=== PATIENT | male | born 1965 | race Caucasian/White ===

== ENCOUNTER 2017-06-14 19:41 | Observation (INO) ==
--- NOTE | 2017-06-14 20:20 | Emergency Department Note ---
Disposition Clinical Impression: Infectious colitis Disposition: Admitted As Inpatient Condition: Good Time of Disposition: 23:30 Abdominal Pain HPI - General Chief Complaint: ED Abdominal Pain Stated Complaint: possible appy Time Seen by Provider: 06/14/17 19:58 Source: patient, EMS Mode of arrival: EMS Limitations: no limitations Nursing Notes Reviewed: Yes Vital Signs Reviewed: Yes - History of Present Illness HPI Narrative: 52-year-old male history of hyperlipidemia and depression presents to the ED via EMS from the [place] for abdominal pain. Patient reports over the past 7 days he has been experiencing abdominal pain mostly on the right side with some associated nausea, vomiting and diarrhea. States he has not taken anything for the pain. He feels when he lays down it makes it feel better but is also even nicer if he stands up. Sitting is uncomfortable. No association with foods. Denies any fever or chills. States prior to the symptoms he was congested and having sinus issues. He was recently diagnosed with some pulmonary nodules and is getting followed up at [facility] for these. He denies any recent travel. Denies any sick contacts. He continues to smoke denies any alcohol use. No prior abdominal surgeries. Today he went to the [place] where they did a CT with oral contrast due to IV contrast allergy which read mildly dilated appendix related to append a seal wall thickening acute appendicitis unlikely but cannot be excluded. There is also mild wall thickening of the descending colon with fatty prominence and may represent inflammatory bowel disease. Pain Scale: 5 - Related Data Allergies Allergy/AdvReac Type Severity Reaction Status Date / Time adhesive tape Allergy Rash Verified 09/22/16 07:31 IVP Dye Allergy Rash Uncoded 09/22/16 07:30 All systems ED: reviewed and negative except as stated. Review of Systems: As Per HPI Constitutional: Denies: fever, chills ENT ED: Reports: congestion. Denies: dysphagia Cardiovascular: Denies: chest pain, dyspnea on exertion Respiratory: Denies: cough, dyspnea Gastrointestinal: Reports: abdominal pain, nausea, vomiting, diarrhea. Denies: melena, hematochezia Genitourinary: Denies: urgency, dysuria Musculoskeletal: Denies: back pain, neck pain Integumentary: Denies: rash, abrasion, lesions Neurological: Denies: headache, weakness Abdominal Pain PMH - Past Medical History Medical history: Reports: GERD, hyperlipidemia Male Surgical History: Reports: orthopedic, other Psychiatric history: Reports: no psych history - Social History Smoking status: Current every day smoker Alcohol use: Reports: occasionally Drug use: Reports: none Physical Exam - General Limitations: no limitations General appearance: alert, in no apparent distress, obese - Head Head exam: atraumatic, normocephalic, normal inspection - Eye Eye exam: Present: normal appearance, PERRL, EOMI - ENT ENT exam: normal exam, normal oropharynx, mucous membranes moist - Neck Neck exam: Present: normal inspection, full ROM, trachea midline - Chest Chest inspection: Present: normal inspection, symmetric chest wall rise - Respiratory Respiratory exam: Present: normal lung sounds bilaterally. Absent: respiratory distress, wheezes - Cardiovascular Cardiovascular exam: Present: regular rate, normal rhythm, normal heart sounds - Abdominal Exam Abdominal exam: Present: soft, tenderness (DIFFUSE), normal bowel sounds, Hui 's sign, tenderness at McBurney's Point. Absent: distention, guarding, rebound , rigidity, Rovsing's sign, mass, scar Abdominal tenderness: Present: RUQ, RLQ, diffuse - Extremities Exam Extremities exam: Present: normal inspection, full ROM, normal capillary refill. Absent: tenderness, pedal edema - Back Exam Back exam: Present: normal inspection, full ROM. Absent: tenderness, CVA tenderness (R), CVA tenderness (L) - Skin Skin exam: Present: warm, dry, intact, normal color Course Course Narrative: 52-year-old male presenting with abdominal pain nausea vomiting in diarrhea. Concern for possible colitis and appendicitis. Will obtain images and consult surgery for possible admission or surgery. Patients in agreement with this plan. He was offered pain medication and nausea medication and kindly declined. Informed to notify staff if he needs anything. - Reevaluation(s) Reevaluation #1: Patient is resting comfortably in bed. Abdomen mildly tender to the right abdomen. Otherwise soft nondistended nonrigid. He will be admitted for colitis. Time: 23:30 - Consultations Consultation #1: Spoke to the on-call surgeon Dr. Kothari, she agrees this is likely not appendicitis most likely colitis. She does wish for the images to be uploaded and unofficial read by our radiologists. She would be happy to consult it on this patient for inpatient treatment. No additional orders or intervention at this time Time: 20:47 Consultation #2: Spoke with balbina Kam to admit to medicine and she will consult. Agrees with recommendation for Cipro Flagyl IV antibiotics. No surgical intervention at this time. Outside Interv Exam: Second Opinion 06/14/17 00:00 IMPRESSION: 1. Mild bowel wall thickening involving the cecum and ascending colon most suggestive of an infectious colitis. 2. The appendix is mildly thick walled likely secondarily inflamed given the wall thickening of the cecum. There is no periappendiceal inflammatory stranding to suggest acute appendicitis. 3. Indeterminate 8 mm nodule within the right lower lobe. A nonemergent CT of the chest is recommended for further evaluation of this finding. The above findings were discussed Dr. Alcantar at 11:10 p.m. on 06/14/2017. D/ / Giovanni Corbin MD / Giovanni Corbin MD Interpreting Provider: Giovanni Corbin MD Time: 23:28 Vital Signs Temperature 98.1 F 06/14/17 19:43 Pulse Rate 92 06/14/17 19:43 Respiratory Rate 20 06/14/17 19:43 Blood Pressure 156/102 06/14/17 19:43 O2 Sat by Pulse Oximetry 95 06/14/17 19:43 Temperature 97.9 F 06/15/17 04:11 Pulse Rate 73 06/15/17 04:11 Respiratory Rate 18 06/15/17 04:11 Blood Pressure 120/76 06/15/17 04:11 O2 Sat by Pulse Oximetry 96 06/15/17 04:11 Oxygen Delivery Oxygen Delivery Room Air Abdominal Pain - MDM Narrative Medical decision making narrative: Patient was discussed with my attending physician who agrees with ED management and final disposition. They independently evaluated the patient. Please refer to their attestation to this encounter for additional information. This note was generated by [employer] voice recognition software and as a result grammatical or spelling errors may occur using this program. - Medical Records Medical records reviewed: Yes I reviewed the patient's medical records. - Lab Data Lab results reviewed: Yes I reviewed the patient's lab results. Lab results narrative: Performed at [place], unremarkable other than ALT 69 Result diagrams: 06/15/17 01:43 06/15/17 01:43 - Radiology Data Radiology results reviewed: Yes I reviewed the patient's radiology results. CT with oral contrast at [place], reads mild wall thickening of the descending colon with fatty prominent. Additionally the appendix appears mildly dilated measuring 9 mm. Appendices dilatation appears related to wall thickening rather than intraluminal distention. No appendiceal fat stranding noted. Critical Care Time Critical Care Time: No Attestation Statement - Attestation Attestation: I, Chiatanya Alcantar MD, personally evaluated this patient and discussed their management with the resident physician. I reviewed the resident's note and agree with the documented findings, medical decision making, and plan of care. 52-year-old male who was transferred here from the local [place] for evaluation for possible appendicitis. Patient presented with a 6 day history of nausea vomiting diarrhea and abdominal pain. He had a workup at the [place] including a CT of the abdomen and pelvis with oral contrast which showed thickening of the wall of the ascending colon and also involving the appendix and could not rule out appendicitis. Patient has said some intermittent chills and sweats but no definite fever. Initially the diarrhea was black but then after the first few days it became normal in color. On examination patient is a well-developed well-nourished male in no acute distress. He is alert and oriented 3. There is no cyanosis or diaphoresis. Breath sounds are clear and equal bilaterally. Heart regular rate and rhythm. Abdomen soft with decreased bowel sounds. There is moderate diffuse tenderness which is worse in the right lower quadrant with mild guarding. Labs from the [place] were reviewed. The abdominal CT performed at the [place] was over read by our radiology department and they felt the patient had some mild ascending colitis with some mild dilatation of the appendix but no daljit- appendiceal inflammatory changes and did not feel there was any evidence for acute appendicitis. The patient was discussed with the surgeon professional skater, Dr. Kothari, and she recommends admission by the hospitalist for treatment of colitis. The hospitalist, Dr. Tony, was consulted and accepted admission of the patient.
[2017-06-14] MEDS ORDERED: MetroNIDAZOLE 500 MG/100 ML 500 MG/100 ML BAG IVPB ONE (23:27)
[2017-06-15] MEDS ORDERED: *HR* Morphine 2 MG/ML SYRINGE IVP PRN (01:23)
[2017-06-15] MEDS ORDERED: Ketorolac 30 MG/ML VIAL IVP PRN (01:23)
[2017-06-15] MEDS ORDERED: Ondansetron 4 MG/2 ML VIAL IVP PRN (01:23)
[2017-06-15] MEDS ORDERED: Naloxone 0.4 MG/ML INJ IVP PRN (01:23)
[2017-06-15 01:50] LABS: Basophils # 0.1 K/mcL (0.0-0.2); Basophils % 0.6 %; Eosinophils # 0.2 K/mcL (0.0-0.6); Eosinophils % 2.5 %; Hematocrit 44.9 % (37.5-50.1); Hemoglobin 15.3 g/dL (12.9-16.9); Immature Granulocytes % 0.5 % (0-4); Immature Platelets 5.3 % (1.1-6.1); Lymphocytes # 1.5 K/mcL (0.6-4.6); Lymphocytes % 18.4 %; Mean Corpuscular HGB Conc 34.1 g/dL (31.6-35.5); Mean Corpuscular Hemoglobin 30.9 pg (28.0-33.3); Mean Corpuscular Volume 90.7 fL (83.0-100.0); Mean Platelet Volume 10.8 fL (9.4-12.4); Monocytes # 0.8 K/mcL (0.0-1.3); Monocytes % 9.6 %; Neutrophils # 5.7 K/mcL (1.6-8.9); Platelet Count 188 K/mcL (140-400); Red Blood Count 4.95 M/mcL (4.19-5.50); Red Cell Distribution Width 13.7 % (11.5-14.5); Segmented Neutrophils % 68.4 %
--- NOTE | 2017-06-15 01:50 | Internal Med History&Physical ---
Addendum entered and electronically signed by Jaime Flores DO 06/15/17 04 :40: Update: EKG shows normal sinus rhythm with no ST elevations or ischemic changes. Troponin is negative. Lactic acid is within normal range. Original Note: <Jaime Flores - Last Filed: 06/15/17 03:08> Date of Encounter: 06/15/17 Time of Encounter: 00:30 Assessment and Plan (1) Infectious colitis Current visit: Yes Status: Acute CT with oral contrast of abdomen performed at [facility] shows mild bowel wall thickening involving the cecum and ascending colon most suggestive of an infectious colitis. The appendix is mildly thick walled likely secondarily inflamed given the wall thickening of the cecum. There is no periappendiceal inflammatory stranding to suggest acute appendicitis. Amylase and lipase levels within normal limits. Patient had a negative Hui's sign on exam. CT scan from [place] shows minimal cholelithiasis. Patient is afebrile. WBC not elevated. - NPO - Lactic acid ordered to rule out ischemic colitis. - Cipro and flagyl. - Surgery consult. (2) Nausea & vomiting Current visit: Yes Status: Acute - zofran. - IV fluids. Qualifiers: Vomiting type: unspecified Vomiting Intractability: unspecified Qualified Code(s): R11.2 - Nausea with vomiting, unspecified (3) Abdominal pain Current visit: Yes Status: Acute Patient c/o mid-epigastric pain. - Pain control. - EKG - Troponin. Qualifiers: Abdominal location: epigastric Qualified Code(s): R10.13 - Epigastric pain (4) DVT prophylaxis Current visit: Yes Status: Acute Patient is very mobile. - Ambulate TID. Internal Medicine - H&P: HPI Chief complaint: Abdominal pain, nausea, vomiting Admitted From: Hospital to Hospital Transfer History of present illness: Mr. Andrea is a 52 year old male with a PMH of GERD and HLD that presents for abdominal pain x 7 days. Patient says the pain is located in the mid-epigastric region, is constant, 6/10 in scale at it's worst, achy in nature, exacerbated with food, and relieved by laying down or walking. He usually becomes nauseous after eating. He admits to vomiting on a few occasions, but denies any hematemesis. Patient has also been having diarrhea for the past week. He denies any blood in his stool. He is unsure whether he has had a fever anytime for the past week, but he does admit that he has had chills. He does state that he has been recovering from a respiratory infection with coughing and congestion. He also admits that he has had a stabbing mid-sternal chest pain a few times during the week that came about while he was resting. They usually lasted 10 minutes and he did not take anything to relieve it. He denies any dysura or hematuria. Past Med Surg Social Fam HX - Past Medical History Medical history: GERD, hyperlipidemia Psychiatric history: no psych history - Past Surgical History Surgical History: orthopedic, other - Social History Smoking Status: Current every day smoker Alcohol use: occasionally Drug use: none Internal Medicine - H&P: Meds 3 Allergy/AdvReac Type Severity Reaction Status Date / Time adhesive tape Allergy Rash Verified 09/22/16 07:31 IVP Dye Allergy Rash Uncoded 09/22/16 07:30 All Systems PM: A 10-system review of systems was performed and is negative for pertinent findings except as documented above in the HPI. - Constitutional Constitutional: as per HPI, chills - Cardiovascular Cardiovascular ROS IM: chest pain, lightheadedness, no dyspnea - Respiratory Respiratory: cough, chest congestion, no dyspnea, no wheezing - Gastrointestinal Gastrointestinal: abdominal pain, diarrhea, heartburn, loose stools, nausea, vomiting, no constipation - Genitourinary Genitourinary ROS male: no dysuria, no flank pain - Neurological Neurological ROS: no dizziness - Constitutional Vitals: Temp Pulse Resp BP Pulse Ox 97.8 F 71 18 118/78 96 06/15/17 01:41 06/15/17 01:41 06/15/17 01:41 06/15/17 01:41 06/15/17 01:41 General appearance: Present: A&O X 3, no acute distress, obese, answers questions appropriately - Respiratory Respiratory exam: Present: CTAB. Absent: rhonchi, wheezes - Cardiovascular Cardiovascular exam: Present: RRR, +S1, +S2 - GI/Abdominal GI/Abdominal exam: Present: normal bowel sounds, soft, tenderness (R upper quadrant and mid-epigastric region. R lower quadrant. ). Absent: guarding, rebound - Expanded GI/Abdominal Exam GI/Abdominal exam expanded: Present: tenderness at McBurney's Point. Absent: Hui's sign, psoas sign, Rovsing's sign Internal Med - H&P Results - Labs CBC & Chem 7: 06/15/17 01:43 06/15/17 01:43 <Justin Gale - Last Filed: 06/15/17 06:59> Date of Encounter: 06/15/17 Internal Medicine - H&P: HPI History of present illness: Mr. Andrea is a 52 year old male All Systems PM: A 10-system review of systems was performed and is negative for pertinent findings except as documented above in the HPI. - Constitutional Vitals: Temp Pulse Resp BP Pulse Ox 98.3 F 64 12 108/70 95 06/15/17 06:48 06/15/17 06:48 06/15/17 06:48 06/15/17 06:48 06/15/17 06:48 Internal Med - H&P Results - Labs CBC & Chem 7: 06/15/17 01:43 06/15/17 01:43 Labs: Short CBC 06/15/17 Range/Units 01:43 WBC 8.4 (4.3-11.1) K/mcL Hgb 15.3 (12.9-16.9) g/dL Hct 44.9 (37.5-50.1) % Plt Count 188 (140-400) K/mcL Neutrophils # 5.7 (1.6-8.9) K/mcL BMP 06/15/17 01:43 Sodium 141 Potassium 3.9 Chloride 110 H Carbon Dioxide 25 BUN 9 Creatinine 0.91 Glucose 98 Calcium 8.6 Cardiac Enzymes 06/15/17 Range/Units 03:49 Troponin I 0.00 (0-0.03) ng/mL Liver Function 06/15/17 Range/Units 01:43 Total Bilirubin 0.9 (0.2-1.2) mg/dL AST 17 (5-34) Units/L ALT 46 (0-55) Units/L Alkaline Phosphatase 94 (38-126) Units/L Albumin 3.3 L (3.5-5.0) g/dL - Attending Attestation I conducted a face to face diagnostic evaluation of this patient and my medical decision-making was reviewed with the Resident Physician, Dr Jaime Flores. I agree with the documented findings, disposition and treatment plan as described except to the extent set forth below: Patient states that 3 of his coworkers had similar GI symptoms within the last 2 weeks. He reports subjective fevers and chills and watery diarrhea in addition to abdominal pain and nausea. On examination abdomen is mildly tender with no guarding or rebound. Negative Hui's sign. I suspect infectious colitis possibly viral etiology. I order GI infection panel. I have reviewed the CAT scan and it agree with the radiologist's findings of thickened ascending colonic wall. The gallbladder appears normal in size with normal amaro, no evidence of cholecystitis. There is tiny cholelithiasis.
[2017-06-15 02:04] LABS: Alanine Aminotransferase 46 Units/L (0-55); Albumin 3.3 g/dL (3.5-5.0); Albumin/Globulin Ratio 1.1 (1.1-2.2); Alkaline Phosphatase 94 Units/L (38-126); Aspartate Amino Transferase 17 Units/L (5-34); BUN/Creatinine Ratio 10 (6-26); Bilirubin,Total 0.9 mg/dL (0.2-1.2); Blood Urea Nitrogen 9 mg/dL (8-26); Calcium 8.6 mg/dL (8.6-10.8); Carbon Dioxide 25 mEq/L (19-29); Chloride 110 mEq/L (98-109); Globulin 2.9 g/dL (2.4-3.5); Glucose 98 mg/dL (70-99); Osmolality,Calculated 291 (280-300); Potassium 3.9 mEq/L (3.5-4.5); Sodium 141 mEq/L (136-145); Total Protein 6.2 g/dL (6.0-8.3); eGFR For African Americans > 60 (> 60); eGFR For Non-African Americans > 60 (> 60)
[2017-06-15] MEDS: 0.9 % Sodium Chloride 1,000 ML IVC SCH ×2 (02:31→13:22)
[2017-06-15] MEDS: MetroNIDAZOLE 500 MG/100 ML 500 MG/100 ML BAG IVPB SCH ×3 (06:15→18:21)
--- NOTE | 2017-06-15 08:48 | Internal Med Progress Note ---
Date of Encounter: 06/15/17 Time of Encounter: 08:46 - Assessment and plan (1) Infectious colitis Current Visit: Yes Status: Acute (2) Nodule of right lung Current Visit: Yes Status: Acute (3) GERD (gastroesophageal reflux disease) Current Visit: Yes Status: Acute Qualifiers: Esophagitis presence: esophagitis presence not specified Qualified Code(s) : K21.9 - Gastro-esophageal reflux disease without esophagitis - Subjective Interval history: Presented with abdominal pain and diarrhea and diagnosed with infectious colitis shown on CT abdomen which revealed cecal and ascending colon wall thickening. No appendicitis. Patient is on antibiotics and IV fluid. Follow CBC CMP. Incidental finding of right lower lung nodule less than [address] chest follow-up. - Constitutional Vitals: Temp Pulse Resp BP Pulse Ox 98.3 F 64 12 108/70 95 06/15/17 06:48 06/15/17 06:48 06/15/17 06:48 06/15/17 06:48 06/15/17 06:48 General appearance: Present: A&O X 3, no acute distress, obese, answers questions appropriately - Head Head exam: Present: atraumatic, normocephalic - Eye Eye exam: Present: PERRL, conjuntiva pink, sclera anicteric Pupils: Present: PERRL - Neck Neck exam general surgery: Present: supple, trachea midline. Absent: lymphadenopathy - Respiratory Respiratory exam: Present: CTAB. Absent: accessory muscle use, rales, rhonchi, wheezes - Cardiovascular Cardiovascular exam: Present: RRR, +S1, +S2. Absent: diastolic murmur, gallop, rubs, systolic murmur - GI/Abdominal GI/Abdominal exam: Present: normal bowel sounds, soft, tenderness. Absent: distended Additional comments: Jack is soft and there is tenderness in the right lower quadrant but I also noted some tenderness in the left lower quadrant raising the question if he has rebound tenderness or peritonitis. - Extremities Exam Extremities exam: Present: warm, radial pulses palpable and symmetrical. Absent : calf tenderness, cyanotic, pedal edema - Neurological Exam Neurological exam: Present: CN II-XII intact, oriented X3, no focal deficits. Absent: pronater drift, facial droop, speech deficit - Skin Skin exam: Present: dry, intact Internal Medicine: Result - Labs CBC & Chem 7: 06/15/17 01:43 06/15/17 01:43 Labs: Short CBC 06/15/17 Range/Units 01:43 WBC 8.4 (4.3-11.1) K/mcL Hgb 15.3 (12.9-16.9) g/dL Hct 44.9 (37.5-50.1) % Plt Count 188 (140-400) K/mcL Neutrophils # 5.7 (1.6-8.9) K/mcL BMP 06/15/17 01:43 Sodium 141 Potassium 3.9 Chloride 110 H Carbon Dioxide 25 BUN 9 Creatinine 0.91 Glucose 98 Calcium 8.6 Cardiac Enzymes 06/15/17 Range/Units 03:49 Troponin I 0.00 (0-0.03) ng/mL Liver Function 06/15/17 Range/Units 01:43 Total Bilirubin 0.9 (0.2-1.2) mg/dL AST 17 (5-34) Units/L ALT 46 (0-55) Units/L Alkaline Phosphatase 94 (38-126) Units/L Albumin 3.3 L (3.5-5.0) g/dL Consult Discharge Plan - Plan Referrals: NONE,PCP [Primary Care Provider] -
[2017-06-15 11:53] LABS: Adenovirus F 40/41 PCR Not detected (Not detect); Astrovirus PCR Not detected (Not detect); C.difficile Toxin A/B by PCR See reflex test (Not detect); Campylobacter by PCR Not detected (Not detect); Cryptosporidium by PCR Not detected (Not detect); Cyclospora cayetanensis PCR Not detected (Not detect); E. coli O157 by PCR Not detected (Not detect); Entamoeba histolytica PCR Not detected (Not detect); Enteroaggregative E.coli(EAEC) Not detected (Not detect); Enteropathogenic E.coli(EPEC) ***DETECTED*** (Not detect); Enterotoxigenic E.coli (ETEC) Not detected (Not detect); Giardia lamblia PCR Not detected (Not detect); Norovirus GI/GII PCR Not detected (Not detect); Plesiomonas shigelloides PCR Not detected (Not detect); Rotavirus A PCR Not detected (Not detect); Salmonella PCR Not detected (Not detect); Sapovirus PCR Not detected (Not detect); Shig/EnteroinvasiveE coli EIEC Not detected (Not detect); Shigalike tox-prod E coli STEC Not detected (Not detect); Vibrio PCR Not detected (Not detect); Vibrio cholerae PCR Not detected (Not detect); Yersinia enterocolitica PCR Not detected (Not detect)
--- NOTE | 2017-06-15 12:12 | General Surgery Consult Note ---
Date of Encounter: 06/15/17 Time of Encounter: 12:10 Assessment and Plan (1) Infectious colitis Current Visit: Yes Status: Acute Currently the patient is on antibiotics. We will continue his antibiotic therapy with bowel rest. He will require repeat colonoscopy at some point once the colitis is resolved. Also due to his pre-existing complaints of epigastric pain after meals will order an ultrasound at later time to evaluate his gallbladder. History of Present Illness Consult date: 06/15/17 Reason for consult: abdominal pain History of present illness: This is a 52-year-old male presents hospital with complaints of right-sided abdominal pain. He reports a long history of epigastric abdominal discomfort after meals. However this pain is different. This seems to be located along his right side. He states it is moderate to severe in nature. He states that the same over the last 10 hours since the beginning of the antibiotic therapy. He denies any nausea or feelings of impending emesis. He denies any fevers at this point. States she has never had anything like this before. He does report colonoscopy 4 years ago which was normal in its finding. He denies any travel outside the [place] or any camping trips recently. Past Med Surg Social Fam HX - Past Medical History Medical history: GERD, hyperlipidemia Psychiatric history: no psych history - Past Surgical History Surgical History: orthopedic, other - Social History Smoking Status: Current every day smoker Alcohol use: occasionally Drug use: none Medications and Allergies Bupropion HCl [Wellbutrin Xl] 300 mg PO QAM 06/15/17 [History] Cetirizine HCl [All Day Allergy] 10 mg PO DAILY 06/15/17 [History] Fluticasone Propionate Nasal [Flonase] 2 spr NS DAILY 06/15/17 [History] Lactobacillus Acidophilus [Acidophilus] 1 tab PO DAILY 06/15/17 [History] Nystatin [Nystatin Suspension] 10 ml PO QID PRN 06/15/17 [History] Pantoprazole Sodium 40 mg PO DAILY 06/15/17 [History] Pravastatin Sodium [Pravachol] 80 mg PO DAILY 06/15/17 [History] SUMAtriptan Succinate [Sumavel Dosepro] 6 mg SQ DAILY PRN 06/15/17 [History] Sildenafil Citrate [Viagra] 50 mg PO DAILY PRN 06/15/17 [History] 3 Allergy/AdvReac Type Severity Reaction Status Date / Time adhesive tape Allergy Rash Verified 06/15/17 11:02 IVP Dye Allergy Rash Uncoded 09/22/16 07:30 Review of Systems All systems PM: reviewed and no additional remarkable complaints except as stated All systems PM: A 10-system review of systems was performed and is negative for pertinent findings except as documented above in the HPI. General Surgery Exam Initial Vital Signs Temp Pulse Resp BP Pulse Ox 98.1 F 92 20 156/102 95 06/14/17 19:43 06/14/17 19:43 06/14/17 19:43 06/14/17 19:43 06/14/17 19:43 - General physical appearance well nourished, no distress - Eyes normal ocular movement - Neck trachea midline - Respiratory normal respiratory effort - Cardiovascular Cardiovascular exam: Present: RRR - Abdomen Abdomen general surgery: Present: bowel sounds present, soft - Integumentary Integumentary general surgery: Present: warm and dry - Neurologic Present: CN 2-12 grossly intact, normal sensation - Psychiatric Psychiatric general surgery: Present: A&Ox3 Exam Initial Vital Signs Temp Pulse Resp BP Pulse Ox 98.1 F 92 20 156/102 95 06/14/17 19:43 06/14/17 19:43 06/14/17 19:43 06/14/17 19:43 06/14/17 19:43 Results - Labs 06/15/17 01:43 06/15/17 01:43 Abnormal lab results Chloride 110 mEq/L (98-109) H 06/15/17 01:43 Albumin 3.3 g/dL (3.5-5.0) L 06/15/17 01:43 Stl C. diff Tox A/B PCR See reflex test (Not detect) A 06/15/17 09:55 Stool EPEC (PCR) DETECTED (Not detect) A 06/15/17 09:55 Diabetes panel 06/15/17 Range/Units 01:43 Sodium 141 (136-145) mEq/L Potassium 3.9 (3.5-4.5) mEq/L Chloride 110 H (98-109) mEq/L Carbon Dioxide 25 (19-29) mEq/L BUN 9 (8-26) mg/dL Creatinine 0.91 (0.72-1.25) mg/dL Glucose 98 (70-99) mg/dL Calcium 8.6 (8.6-10.8) mg/dL AST 17 (5-34) Units/L ALT 46 (0-55) Units/L Alkaline Phosphatase 94 (38-126) Units/L Albumin 3.3 L (3.5-5.0) g/dL Calcium panel 06/15/17 Range/Units 01:43 Calcium 8.6 (8.6-10.8) mg/dL Albumin 3.3 L (3.5-5.0) g/dL Pituitary panel 06/15/17 Range/Units 01:43 Sodium 141 (136-145) mEq/L Potassium 3.9 (3.5-4.5) mEq/L Chloride 110 H (98-109) mEq/L Carbon Dioxide 25 (19-29) mEq/L BUN 9 (8-26) mg/dL Creatinine 0.91 (0.72-1.25) mg/dL Glucose 98 (70-99) mg/dL Calcium 8.6 (8.6-10.8) mg/dL Adrenal panel 06/15/17 Range/Units 01:43 Sodium 141 (136-145) mEq/L Potassium 3.9 (3.5-4.5) mEq/L Chloride 110 H (98-109) mEq/L Carbon Dioxide 25 (19-29) mEq/L BUN 9 (8-26) mg/dL Creatinine 0.91 (0.72-1.25) mg/dL Glucose 98 (70-99) mg/dL Calcium 8.6 (8.6-10.8) mg/dL Total Bilirubin 0.9 (0.2-1.2) mg/dL AST 17 (5-34) Units/L ALT 46 (0-55) Units/L Alkaline Phosphatase 94 (38-126) Units/L Albumin 3.3 L (3.5-5.0) g/dL All other labs normal. Consult Discharge Plan - Plan Referrals: NONE,PCP [Primary Care Provider] -
[2017-06-16] MEDS: MetroNIDAZOLE 500 MG/100 ML 500 MG/100 ML BAG IVPB SCH ×4 (00:05→20:08)
[2017-06-16 04:48] LABS: Basophils % 0.5 %; Eosinophils # 0.2 K/mcL (0.0-0.6); Eosinophils % 2.4 %; Hematocrit 42.8 % (37.5-50.1); Hemoglobin 14.6 g/dL (12.9-16.9); Immature Granulocytes % 0.5 % (0-4); Lymphocytes # 1.3 K/mcL (0.6-4.6); Lymphocytes % 21.5 %; Mean Corpuscular HGB Conc 34.1 g/dL (31.6-35.5); Mean Corpuscular Volume 90.9 fL (83.0-100.0); Mean Platelet Volume 10.9 fL (9.4-12.4); Monocytes # 0.6 K/mcL (0.0-1.3); Monocytes % 9.7 %; Neutrophils # 4.1 K/mcL (1.6-8.9); Platelet Count 187 K/mcL (140-400); Red Blood Count 4.71 M/mcL (4.19-5.50); Red Cell Distribution Width 13.6 % (11.5-14.5); Segmented Neutrophils % 65.4 %
[2017-06-16 05:04] LABS: Alanine Aminotransferase 30 Units/L (0-55); Albumin 3.1 g/dL (3.5-5.0); Albumin/Globulin Ratio 1.1 (1.1-2.2); Alkaline Phosphatase 82 Units/L (38-126); Aspartate Amino Transferase 9 Units/L (5-34); BUN/Creatinine Ratio 6 (6-26); Bilirubin,Total 0.8 mg/dL (0.2-1.2); Calcium 8.3 mg/dL (8.6-10.8); Carbon Dioxide 25 mEq/L (19-29); Chloride 111 mEq/L (98-109); Globulin 2.7 g/dL (2.4-3.5); Glucose 85 mg/dL (70-99); Osmolality,Calculated 289 (280-300); Potassium 3.9 mEq/L (3.5-4.5); Sodium 141 mEq/L (136-145); Total Protein 5.8 g/dL (6.0-8.3); eGFR For African Americans > 60 (> 60); eGFR For Non-African Americans > 60 (> 60)
[2017-06-16 05:05] LABS: Blood Urea Nitrogen 5 mg/dL (8-26)
--- NOTE | 2017-06-16 08:12 | Internal Med Progress Note ---
Date of Encounter: 06/16/17 Time of Encounter: 08:10 - Assessment and plan (1) Infectious colitis Current Visit: Yes Status: Acute Assessment and plan: CT scan showed cecum and ascending colon colitis. Patient is on Cipro and Flagyl. Stool cultures showed Escherichia coli ? significance. Noted Cipro was discontinued and will be started. Advanced to full diet and see if he tolerates. Gen. surgery consulted ,plan to do colonoscopy once improved. (2) Nodule of right lung Current Visit: Yes Status: Acute Assessment and plan: Incidental finding needs follow-up as outpatient on periodic basis through family physician's office (3) GERD (gastroesophageal reflux disease) Current Visit: Yes Status: Acute Assessment and plan: PPI added Qualifiers: Esophagitis presence: esophagitis presence not specified Qualified Code(s) : K21.9 - Gastro-esophageal reflux disease without esophagitis - Subjective Interval history: Presented with abdominal pain and diarrhea and diagnosed with infectious colitis shown on CT abdomen which revealed cecal and ascending colon wall thickening. No appendicitis. Patient is on antibiotics and IV fluid. Follow CBC CMP. Incidental finding of right lower lung nodule less than [address] chest follow-up. 06/16 on liquid diet. Still using pain medicine for abdominal pain. Loose bowel movement. - Constitutional Vitals: Temp Pulse Resp BP Pulse Ox 97.9 F 65 16 120/64 98 06/16/17 03:42 06/16/17 03:42 06/16/17 03:42 06/16/17 03:42 06/16/17 03:42 General appearance: Present: A&O X 3, no acute distress, obese, answers questions appropriately - Head Head exam: Present: atraumatic, normocephalic - Eye Eye exam: Present: PERRL, conjuntiva pink, sclera anicteric Pupils: Present: PERRL - Neck Neck exam general surgery: Present: supple, trachea midline. Absent: lymphadenopathy - Respiratory Respiratory exam: Present: CTAB. Absent: accessory muscle use, rales, rhonchi, wheezes - Cardiovascular Cardiovascular exam: Present: RRR, +S1, +S2. Absent: diastolic murmur, gallop, rubs, systolic murmur - GI/Abdominal GI/Abdominal exam: Present: normal bowel sounds, soft, tenderness, no peritoneal signs. Absent: distended - Extremities Exam Extremities exam: Present: warm, radial pulses palpable and symmetrical. Absent : calf tenderness, cyanotic, pedal edema - Neurological Exam Neurological exam: Present: CN II-XII intact, oriented X3, no focal deficits. Absent: pronater drift, facial droop, speech deficit - Skin Skin exam: Present: dry, intact Internal Medicine: Result - Labs CBC & Chem 7: 06/16/17 04:24 06/16/17 04:24 Labs: Short CBC 06/16/17 Range/Units 04:24 WBC 6.2 (4.3-11.1) K/mcL Hgb 14.6 (12.9-16.9) g/dL Hct 42.8 (37.5-50.1) % Plt Count 187 (140-400) K/mcL Neutrophils # 4.1 (1.6-8.9) K/mcL BMP 06/16/17 04:24 Sodium 141 Potassium 3.9 Chloride 111 H Carbon Dioxide 25 BUN 5 L Creatinine 0.80 Glucose 85 Calcium 8.3 L Liver Function 06/16/17 Range/Units 04:24 Total Bilirubin 0.8 (0.2-1.2) mg/dL AST 9 (5-34) Units/L ALT 30 (0-55) Units/L Alkaline Phosphatase 82 (38-126) Units/L Albumin 3.1 L (3.5-5.0) g/dL Consult Discharge Plan - Plan Additional Instructions: Advance to low fat diet as tolerated Referrals: Maury Benz DO [Partnered Physician] - 06/26/17 9:05 am (hospital follow-up) NONE,PCP [Primary Care Provider] - Prescriptions: Ciprofloxacin [Cipro] 500 mg PO BID #20 tablet metroNIDAZOLE [Flagyl] 500 mg PO TID #30 tablet
--- NOTE | 2017-06-16 10:01 | General Surgery Progress Note ---
Date of Encounter: 06/16/17 Time of Encounter: 09:45 - Assessment and Plan (1) Infectious colitis Current Visit: Yes Status: Acute Transition to PO antibiotics Advance to full liquids Supportive care May discharge from a surgical standpoint Plan for interval colonoscopy in 6-8 weeks Will arrange for outpatient follow-up with Dr. Benz Subjective Patient reports: no new complaints, feels better, still having pain, pain is less, tolerating liquids well, voiding w/o difficulty, flatus, bowel movement, afebrile Objective Vital Signs - Last 8 Hours Temp Pulse Resp BP Pulse Ox 06/16/17 03:42 97.9 F 65 16 120/64 98 Intake and Output 06/15/17 06/16/17 06/16/17 23:59 07:59 15:59 Intake Total 920 / 920 100 / 100 840 / 840 Balance 920 / 920 100 / 100 840 / 840 Intake: IV Fluids 200 / 200 100 / 100 Flagyl Premix 500 MG/100 ML 500 200 / 200 100 / 100 mg In 100 ml @ 100 mls/hr IVPB Q6HR IVY Rx#:[id number] Oral 720 / 720 0 / 0 840 / 840 Other: Meal Dinner Clear # Voids 3 2 - General physical appearance well developed, well nourished, no distress - Eyes normal ocular movement - ENT normal mucosa, atraumatic, normocephalic - Neck Neck exam: trachea midline - Respiratory normal expansion, normal respiratory effort, clear to auscultation - Cardiovascular Cardiovascular exam: Present: RRR - Abdomen Abdomen: Present: bowel sounds present, soft, tender Abdominal Tenderness: RUQ, RLQ - Neurologic CN 2-12 grossly intact - Musculoskeletal normal gait, normal posture - Psychiatric oriented to time, oriented to person, oriented to place, speech is normal, memory intact - Labs 06/16/17 04:24 06/16/17 04:24 Diabetes panel 06/16/17 Range/Units 04:24 Sodium 141 (136-145) mEq/L Potassium 3.9 (3.5-4.5) mEq/L Chloride 111 H (98-109) mEq/L Carbon Dioxide 25 (19-29) mEq/L BUN 5 L (8-26) mg/dL Creatinine 0.80 (0.72-1.25) mg/dL Glucose 85 (70-99) mg/dL Calcium 8.3 L (8.6-10.8) mg/dL AST 9 (5-34) Units/L ALT 30 (0-55) Units/L Alkaline Phosphatase 82 (38-126) Units/L Albumin 3.1 L (3.5-5.0) g/dL Calcium panel 06/16/17 Range/Units 04:24 Calcium 8.3 L (8.6-10.8) mg/dL Albumin 3.1 L (3.5-5.0) g/dL Pituitary panel 06/16/17 Range/Units 04:24 Sodium 141 (136-145) mEq/L Potassium 3.9 (3.5-4.5) mEq/L Chloride 111 H (98-109) mEq/L Carbon Dioxide 25 (19-29) mEq/L BUN 5 L (8-26) mg/dL Creatinine 0.80 (0.72-1.25) mg/dL Glucose 85 (70-99) mg/dL Calcium 8.3 L (8.6-10.8) mg/dL Adrenal panel 06/16/17 Range/Units 04:24 Sodium 141 (136-145) mEq/L Potassium 3.9 (3.5-4.5) mEq/L Chloride 111 H (98-109) mEq/L Carbon Dioxide 25 (19-29) mEq/L BUN 5 L (8-26) mg/dL Creatinine 0.80 (0.72-1.25) mg/dL Glucose 85 (70-99) mg/dL Calcium 8.3 L (8.6-10.8) mg/dL Total Bilirubin 0.8 (0.2-1.2) mg/dL AST 9 (5-34) Units/L ALT 30 (0-55) Units/L Alkaline Phosphatase 82 (38-126) Units/L Albumin 3.1 L (3.5-5.0) g/dL Consult Discharge Plan - Plan Additional Instructions: Advance to low fat diet as tolerated Referrals: NONE,PCP [Primary Care Provider] - Maury Benz DO [Partnered Physician] - 06/26/17 9:05 am (hospital follow-up) Prescriptions: Ciprofloxacin [Cipro] 500 mg PO BID #20 tablet metroNIDAZOLE [Flagyl] 500 mg PO TID #30 tablet
[2017-06-16] MEDS ORDERED: NON-FORMULARY MEDICATION 1 EACH EACH (Pantoprazole Sodium [Pantoprazole Sodium] 40 MG) PO SCH (12:15)
[2017-06-17] MEDS: MetroNIDAZOLE 500 MG/100 ML 500 MG/100 ML BAG IVPB SCH ×4 (00:20→18:10)
[2017-06-17 04:19] LABS: Basophils % 0.7 %; Eosinophils # 0.2 K/mcL (0.0-0.6); Eosinophils % 2.8 %; Hematocrit 45.7 % (37.5-50.1); Hemoglobin 15.4 g/dL (12.9-16.9); Immature Granulocytes % 0.4 % (0-4); Lymphocytes # 1.6 K/mcL (0.6-4.6); Mean Corpuscular HGB Conc 33.7 g/dL (31.6-35.5); Mean Corpuscular Hemoglobin 30.6 pg (28.0-33.3); Mean Corpuscular Volume 90.9 fL (83.0-100.0); Mean Platelet Volume 10.9 fL (9.4-12.4); Monocytes # 0.6 K/mcL (0.0-1.3); Monocytes % 11.3 %; Neutrophils # 3.2 K/mcL (1.6-8.9); Platelet Count 208 K/mcL (140-400); Red Blood Count 5.03 M/mcL (4.19-5.50); Red Cell Distribution Width 13.3 % (11.5-14.5); Segmented Neutrophils % 56.8 %
[2017-06-17 04:34] LABS: Alanine Aminotransferase 28 Units/L (0-55); Albumin 3.4 g/dL (3.5-5.0); Albumin/Globulin Ratio 1.1 (1.1-2.2); Alkaline Phosphatase 84 Units/L (38-126); Aspartate Amino Transferase 13 Units/L (5-34); BUN/Creatinine Ratio 6 (6-26); Bilirubin,Total 0.7 mg/dL (0.2-1.2); Calcium 8.9 mg/dL (8.6-10.8); Carbon Dioxide 25 mEq/L (19-29); Chloride 108 mEq/L (98-109); Glucose 89 mg/dL (70-99); Osmolality,Calculated 289 (280-300); Potassium 4.3 mEq/L (3.5-4.5); Sodium 141 mEq/L (136-145); Total Protein 6.4 g/dL (6.0-8.3); eGFR For African Americans > 60 (> 60); eGFR For Non-African Americans > 60 (> 60)
[2017-06-17 04:35] LABS: Blood Urea Nitrogen 5 mg/dL (8-26)
[2017-06-17] MEDS: Lactobacillus 1 EACH CAP.SPRINK PO SCH (09:09)
[2017-06-17] MEDS: BuPROPion XL (24 HR) 150 MG TABLET PO SCH (09:09)
[2017-06-17] MEDS: Loratadine 10 MG TABLET PO SCH (09:09)
--- NOTE | 2017-06-17 11:29 | Internal Med Progress Note ---
Date of Encounter: 06/17/17 Time of Encounter: : - Assessment and plan (1) Infectious colitis Current Visit: Yes Status: Acute Assessment and plan: CT scan showed cecum and ascending colon colitis. Patient is on Cipro and Flagyl. Still complaining of diarrhea 7 yesterday and 3 this morning. Using IV pain medicines. Stool cultures showed Escherichia coli ? significance. Noted Cipro was discontinued and will be started. Advanced to soft diet and see if he tolerates. Gen. surgery consulted ,plan to do colonoscopy once improved. (2) Nodule of right lung Current Visit: Yes Status: Acute Assessment and plan: Incidental finding needs follow-up as outpatient on periodic basis through family physician's office (3) GERD (gastroesophageal reflux disease) Current Visit: Yes Status: Acute Assessment and plan: PPI added Qualifiers: Esophagitis presence: esophagitis presence not specified Qualified Code(s) : K21.9 - Gastro-esophageal reflux disease without esophagitis - Subjective Interval history: Presented with abdominal pain and diarrhea and diagnosed with infectious colitis shown on CT abdomen which revealed cecal and ascending colon wall thickening. No appendicitis. Patient is on antibiotics and IV fluid. Follow CBC CMP. Incidental finding of right lower lung nodule less than [address] chest follow-up. 06/16 on liquid diet. Still using pain medicine for abdominal pain. Loose bowel movement. 06/17 patient on full liquids. No nausea or vomiting. Still has quite a bit of diarrhea and had 7 episodes of loose bowel movement yesterday. 3 loose bowel movement this morning. Still requiring IV pain medication. However examination seems to have improved therefore I will try to escalate him to soft diet and see if he can tolerate it. - Constitutional Vitals: Temp Pulse Resp BP Pulse Ox 97.5 F L 76 16 149/84 95 06/17/17 06:55 06/17/17 06:55 06/17/17 06:55 06/17/17 06:55 06/17/17 06:55 General appearance: Present: A&O X 3, no acute distress, obese, answers questions appropriately - Head Head exam: Present: atraumatic, normocephalic - Eye Eye exam: Present: PERRL, conjuntiva pink, sclera anicteric Pupils: Present: PERRL - Neck Neck exam general surgery: Present: supple, trachea midline. Absent: lymphadenopathy - Respiratory Respiratory exam: Present: CTAB. Absent: accessory muscle use, rales, rhonchi, wheezes - Cardiovascular Cardiovascular exam: Present: RRR, +S1, +S2. Absent: diastolic murmur, gallop, rubs, systolic murmur - GI/Abdominal GI/Abdominal exam: Present: normal bowel sounds, soft, tenderness, no peritoneal signs. Absent: distended - Extremities Exam Extremities exam: Present: warm, radial pulses palpable and symmetrical. Absent : calf tenderness, cyanotic, pedal edema - Neurological Exam Neurological exam: Present: CN II-XII intact, oriented X3, no focal deficits. Absent: pronater drift, facial droop, speech deficit - Skin Skin exam: Present: dry, intact Internal Medicine: Result - Labs CBC & Chem 7: 06/17/17 03:58 06/17/17 03:58 Labs: Short CBC 06/17/17 Range/Units 03:58 WBC 5.6 (4.3-11.1) K/mcL Hgb 15.4 (12.9-16.9) g/dL Hct 45.7 (37.5-50.1) % Plt Count 208 (140-400) K/mcL Neutrophils # 3.2 (1.6-8.9) K/mcL BMP 06/17/17 03:58 Sodium 141 Potassium 4.3 Chloride 108 Carbon Dioxide 25 BUN 5 L Creatinine 0.89 Glucose 89 Calcium 8.9 Liver Function 06/17/17 Range/Units 03:58 Total Bilirubin 0.7 (0.2-1.2) mg/dL AST 13 (5-34) Units/L ALT 28 (0-55) Units/L Alkaline Phosphatase 84 (38-126) Units/L Albumin 3.4 L (3.5-5.0) g/dL Consult Discharge Plan - Plan Additional Instructions: Advance to low fat diet as tolerated Referrals: Maury Benz DO [Partnered Physician] - 06/26/17 9:05 am (hospital follow-up) NONE,PCP [Primary Care Provider] - Prescriptions: Ciprofloxacin [Cipro] 500 mg PO BID #20 tablet metroNIDAZOLE [Flagyl] 500 mg PO TID #30 tablet
[2017-06-17] MEDS: Fluticasone Propionate Nasal 50 MCG/SPRAY BOTTLE NS SCH (17:02)
[2017-06-18] MEDS: MetroNIDAZOLE 500 MG/100 ML 500 MG/100 ML BAG IVPB SCH ×5 (00:03→23:42)
[2017-06-18 07:53] LABS: Basophils % 0.5 %; Eosinophils # 0.1 K/mcL (0.0-0.6); Eosinophils % 1.8 %; Hematocrit 46.9 % (37.5-50.1); Hemoglobin 15.8 g/dL (12.9-16.9); Immature Granulocytes % 0.5 % (0-4); Lymphocytes # 1.6 K/mcL (0.6-4.6); Lymphocytes % 20.5 %; Mean Corpuscular HGB Conc 33.7 g/dL (31.6-35.5); Mean Corpuscular Hemoglobin 30.4 pg (28.0-33.3); Mean Corpuscular Volume 90.2 fL (83.0-100.0); Mean Platelet Volume 11.1 fL (9.4-12.4); Monocytes # 0.7 K/mcL (0.0-1.3); Monocytes % 9.2 %; Neutrophils # 5.1 K/mcL (1.6-8.9); Platelet Count 221 K/mcL (140-400); Red Cell Distribution Width 13.3 % (11.5-14.5); Segmented Neutrophils % 67.5 %
[2017-06-18 08:10] LABS: Alanine Aminotransferase 32 Units/L (0-55); Albumin 3.5 g/dL (3.5-5.0); Albumin/Globulin Ratio 1.1 (1.1-2.2); Alkaline Phosphatase 83 Units/L (38-126); Aspartate Amino Transferase 23 Units/L (5-34); BUN/Creatinine Ratio 8 (6-26); Bilirubin,Total 0.8 mg/dL (0.2-1.2); Blood Urea Nitrogen 7 mg/dL (8-26); Calcium 8.7 mg/dL (8.6-10.8); Carbon Dioxide 22 mEq/L (19-29); Chloride 107 mEq/L (98-109); Globulin 3.2 g/dL (2.4-3.5); Glucose 100 mg/dL (70-99); Osmolality,Calculated 282 (280-300); Sodium 137 mEq/L (136-145); Total Protein 6.7 g/dL (6.0-8.3); eGFR For African Americans > 60 (> 60); eGFR For Non-African Americans > 60 (> 60)
[2017-06-18] MEDS: Fluticasone Propionate Nasal 50 MCG/SPRAY BOTTLE NS SCH (08:37)
[2017-06-18] MEDS: BuPROPion XL (24 HR) 150 MG TABLET PO SCH (08:37)
[2017-06-18] MEDS: Lactobacillus 1 EACH CAP.SPRINK PO SCH (08:37)
[2017-06-18] MEDS: Loratadine 10 MG TABLET PO SCH (08:37)
--- NOTE | 2017-06-18 17:07 | Internal Med Progress Note ---
Date of Encounter: 06/18/17 Time of Encounter: 17:06 - Assessment and plan (1) Infectious colitis Current Visit: Yes Status: Acute Assessment and plan: CT scan showed cecum and ascending colon colitis. Patient is on Cipro and Flagyl. Still complaining of diarrhea 7 yesterday and 3 this morning. Using IV pain medicines. Stool cultures showed Escherichia coli ? significance. Noted Cipro was discontinued and will be started. Advanced to soft diet and see if he tolerates. Gen. surgery consulted ,plan to do colonoscopy once improved. (2) Nodule of right lung Current Visit: Yes Status: Acute Assessment and plan: Incidental finding needs follow-up as outpatient on periodic basis through family physician's office (3) GERD (gastroesophageal reflux disease) Current Visit: Yes Status: Acute Assessment and plan: PPI added Qualifiers: Esophagitis presence: esophagitis presence not specified Qualified Code(s) : K21.9 - Gastro-esophageal reflux disease without esophagitis - Subjective Interval history: Presented with abdominal pain and diarrhea and diagnosed with infectious colitis shown on CT abdomen which revealed cecal and ascending colon wall thickening. No appendicitis. Patient is on antibiotics and IV fluid. Follow CBC CMP. Incidental finding of right lower lung nodule less than [address] chest follow-up. 06/16 on liquid diet. Still using pain medicine for abdominal pain. Loose bowel movement. 06/17 patient on full liquids. No nausea or vomiting. Still has quite a bit of diarrhea and had 7 episodes of loose bowel movement yesterday. 3 loose bowel movement this morning. Still requiring IV pain medication. However examination seems to have improved therefore I will try to escalate him to soft diet and see if he can tolerate it. 06/18 patient was put on full liquid yesterday. His is still having diarrhea and had 4 loose bowel movement today. Feels that abdominal pain may be seen as yesterday. We tried to switch him to full diet today but by afternoon nurse reported that patient is feeling dizzy pain has increased apparently he did not tolerate full diet well. We recommend to continue on liquids at this point and will try again tomorrow to see if he is able to take soft diet. - Constitutional Vitals: Temp Pulse Resp BP Pulse Ox 97.9 F 75 14 130/79 97 06/18/17 11:26 06/18/17 11:26 06/18/17 11:06/18/17 11:26 06/18/17 11:26 General appearance: Present: A&O X 3, no acute distress, obese, answers questions appropriately - Head Head exam: Present: atraumatic, normocephalic - Eye Eye exam: Present: PERRL, conjuntiva pink, sclera anicteric Pupils: Present: PERRL - Neck Neck exam general surgery: Present: supple, trachea midline. Absent: lymphadenopathy - Respiratory Respiratory exam: Present: CTAB. Absent: accessory muscle use, rales, rhonchi, wheezes - Cardiovascular Cardiovascular exam: Present: RRR, +S1, +S2. Absent: diastolic murmur, gallop, rubs, systolic murmur - GI/Abdominal GI/Abdominal exam: Present: normal bowel sounds, soft, no peritoneal signs. Absent: distended, tenderness - Extremities Exam Extremities exam: Present: warm, radial pulses palpable and symmetrical. Absent : calf tenderness, cyanotic, pedal edema - Neurological Exam Neurological exam: Present: CN II-XII intact, oriented X3, no focal deficits. Absent: pronater drift, facial droop, speech deficit - Skin Skin exam: Present: dry, intact Internal Medicine: Result - Labs CBC & Chem 7: 06/18/17 06:35 06/18/17 06:35 Labs: Short CBC 06/18/17 Range/Units 06:35 WBC 7.6 (4.3-11.1) K/mcL Hgb 15.8 (12.9-16.9) g/dL Hct 46.9 (37.5-50.1) % Plt Count 221 (140-400) K/mcL Neutrophils # 5.1 (1.6-8.9) K/mcL BMP 06/18/17 06:35 Sodium 137 Potassium 4.0 Chloride 107 Carbon Dioxide 22 BUN 7 L Creatinine 0.90 Glucose 100 H Calcium 8.7 Liver Function 06/18/17 Range/Units 06:35 Total Bilirubin 0.8 (0.2-1.2) mg/dL AST 23 (5-34) Units/L ALT 32 (0-55) Units/L Alkaline Phosphatase 83 (38-126) Units/L Albumin 3.5 (3.5-5.0) g/dL Consult Discharge Plan - Plan Additional Instructions: Advance to low fat diet as tolerated Referrals: Maury Benz DO [Partnered Physician] - 06/26/17 9:05 am (hospital follow-up) NONE,PCP [Primary Care Provider] - Prescriptions: Ciprofloxacin [Cipro] 500 mg PO BID #20 tablet metroNIDAZOLE [Flagyl] 500 mg PO TID #30 tablet
[2017-06-19] MEDS: MetroNIDAZOLE 500 MG/100 ML 500 MG/100 ML BAG IVPB SCH (05:10)
[2017-06-19 05:41] LABS: Basophils # 0.1 K/mcL (0.0-0.2); Basophils % 0.8 %; Eosinophils # 0.2 K/mcL (0.0-0.6); Eosinophils % 2.3 %; Hematocrit 45.9 % (37.5-50.1); Hemoglobin 15.5 g/dL (12.9-16.9); Immature Granulocytes % 0.3 % (0-4); Lymphocytes # 1.4 K/mcL (0.6-4.6); Lymphocytes % 22.2 %; Mean Corpuscular HGB Conc 33.8 g/dL (31.6-35.5); Mean Corpuscular Hemoglobin 30.6 pg (28.0-33.3); Mean Corpuscular Volume 90.5 fL (83.0-100.0); Monocytes # 0.6 K/mcL (0.0-1.3); Monocytes % 9.5 %; Neutrophils # 4.2 K/mcL (1.6-8.9); Platelet Count 195 K/mcL (140-400); Red Blood Count 5.07 M/mcL (4.19-5.50); Red Cell Distribution Width 13.6 % (11.5-14.5); Segmented Neutrophils % 64.9 %
[2017-06-19 06:01] LABS: Alanine Aminotransferase 33 Units/L (0-55); Albumin 3.6 g/dL (3.5-5.0); Albumin/Globulin Ratio 1.3 (1.1-2.2); Alkaline Phosphatase 82 Units/L (38-126); Aspartate Amino Transferase 22 Units/L (5-34); BUN/Creatinine Ratio 11 (6-26); Bilirubin,Total 0.4 mg/dL (0.2-1.2); Blood Urea Nitrogen 11 mg/dL (8-26); Calcium 8.9 mg/dL (8.6-10.8); Carbon Dioxide 25 mEq/L (19-29); Chloride 106 mEq/L (98-109); Globulin 2.7 g/dL (2.4-3.5); Glucose 108 mg/dL (70-99); Osmolality,Calculated 282 (280-300); Potassium 4.3 mEq/L (3.5-4.5); Sodium 136 mEq/L (136-145); Total Protein 6.3 g/dL (6.0-8.3); eGFR For African Americans > 60 (> 60); eGFR For Non-African Americans > 60 (> 60)
[2017-06-19] MEDS: BuPROPion XL (24 HR) 150 MG TABLET PO SCH (07:50)
[2017-06-19] MEDS: Lactobacillus 1 EACH CAP.SPRINK PO SCH (07:50)
[2017-06-19] MEDS: Loratadine 10 MG TABLET PO SCH (07:50)
[2017-06-19] MEDS: Fluticasone Propionate Nasal 50 MCG/SPRAY BOTTLE NS SCH (07:56)
--- NOTE | 2017-06-19 08:51 | Discharge Summary ---
Date of Encounter: 06/19/17 Time of Encounter: 08:50 - Discharge Diagnosis (1) Infectious colitis Priority: Primary Status: Acute (2) Nodule of right lung Priority: Secondary Status: Acute (3) GERD (gastroesophageal reflux disease) Priority: Secondary Status: Acute Qualifiers: Esophagitis presence: esophagitis presence not specified Qualified Code(s) : K21.9 - Gastro-esophageal reflux disease without esophagitis - Discharge Medications Prescriptions: Ciprofloxacin [Cipro] 500 mg PO BID #20 tablet metroNIDAZOLE [Flagyl] 500 mg PO TID #30 tablet Home Medications: Bupropion HCl [Wellbutrin Xl] 300 mg PO QAM 06/15/17 [History] Cetirizine HCl [All Day Allergy] 10 mg PO DAILY 06/15/17 [History] Fluticasone Propionate Nasal [Flonase] 2 spr NS DAILY 06/15/17 [History] Lactobacillus Acidophilus [Acidophilus] 1 tab PO DAILY 06/15/17 [History] Nystatin [Nystatin Suspension] 10 ml PO QID PRN 06/15/17 [History] Pantoprazole Sodium 40 mg PO DAILY 06/15/17 [History] Pravastatin Sodium [Pravachol] 80 mg PO DAILY 06/15/17 [History] SUMAtriptan Succinate [Sumavel Dosepro] 6 mg SQ DAILY PRN 06/15/17 [History] Sildenafil Citrate [Viagra] 50 mg PO DAILY PRN 06/15/17 [History] Ciprofloxacin [Cipro] 500 mg PO BID #20 tablet 06/16/17 [Rx] metroNIDAZOLE [Flagyl] 500 mg PO TID #30 tablet 06/16/17 [Rx] Allergies/Adverse Reactions: 3 Allergy/AdvReac Type Severity Reaction Status Date / Time adhesive tape Allergy Rash Verified 06/15/17 11:02 IVP Dye Allergy Rash Uncoded 09/22/16 07:30 Date of admission: 06/15/17 00:12 Primary care physician: PCP NONE Discharging clinician: Trey Nichols Anticipated date of discharge: 06/19/17 - Patient Status Disposition: Home, Self-Care Condition: Good Overall status at discharge: patient is progressing back to baseline - Discharge Instructions Follow Up With: Maury Benz DO [Partnered Physician] - 06/26/17 9:05 am (hospital follow-up) NONE,PCP [Primary Care Provider] - Additional Instructions: Advance to low fat diet as tolerated - Diet and Activity Activity: resume usual activities as tolerated Diet: advance to your usual diet, other (Soft diet for 2 weeks) Hospital course: Mr. Andrea is a 52 year old male Presented with abdominal pain and diarrhea and diagnosed with infectious colitis shown on CT abdomen which revealed cecal and ascending colon wall thickening. No appendicitis. Treated with IV Cipro and Flagyl and improved. Tolerating full diet now. Abdominal examination unremarkable patient can be discharged on Cipro and Flagyl. - Time Spent with Patient Total time spent providing and/or coordinating discharge services: Greater than 30 minutes - Constitutional Vitals: Temp Pulse Resp BP Pulse Ox 97.9 F 68 14 107/68 95 06/19/17 06:02 06/19/17 06:02 06/19/17 06:02 06/19/17 06:02 06/19/17 06:02 General appearance: Present: A&O X 3, no acute distress, obese, answers questions appropriately - Head Head exam: Present: atraumatic, normocephalic - Eye Eye exam: Present: PERRL, conjuntiva pink, sclera anicteric Pupils: Present: PERRL - Neck Neck exam general surgery: Present: supple, trachea midline. Absent: lymphadenopathy - Respiratory Respiratory exam: Present: CTAB. Absent: accessory muscle use, rales, rhonchi, wheezes - Cardiovascular Cardiovascular exam: Present: RRR, +S1, +S2. Absent: diastolic murmur, gallop, rubs, systolic murmur - GI/Abdominal GI/Abdominal exam: Present: normal bowel sounds, soft, no peritoneal signs. Absent: distended, tenderness - Extremities Exam Extremities exam: Present: warm, radial pulses palpable and symmetrical. Absent : calf tenderness, cyanotic, pedal edema - Neurological Exam Neurological exam: Present: CN II-XII intact, oriented X3, no focal deficits. Absent: pronater drift, facial droop, speech deficit - Skin Skin exam: Present: dry, intact
[2017-06-19 08:54] VITALS: BP 126/79
--- NOTE | 2017-06-19 09:11 | Electrocardiograph Report ---
[place] [id number] Test Date: 2017-06-15 Pat Name: Rao Andrea Department: 115 Room: 3A12 Gender: M [employer] Supervisor: [id number] : 1965 Requested By: Jaime Flores Order Number: [id number] Reading MD: Jl Hernandez DO Measurements Intervals [place] Rate: 69 P: 78 OR: 205 QRS: 61 QRSD: 116 T: 56 QT: 382 QTc: 401 Interpretive Statements SINUS RHYTHM INTRAVENTRICULAR CONDUCTION DELAY Electronically Signed On 06-19-2017 9:10:29 EST by Jl Hernandez DO
== END 2017-06-19 11:06 | disposition home or self-care (01) ==
LOC: 3ANU 19:41 → EMEROO 19:41 → 3ANU 06-15 00:26
PROVIDERS: ADMIT Family Medicine; ATTEND Hospitalist